=== PATIENT | female | born 1980 | race Caucasian/White ===

== ENCOUNTER 2016-10-06 20:51 | Emergency (ER) | payer OTHER ==
[2016-10-06 21:14] VITALS: RESP 16; TEMP 98.1
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
[2016-10-06 22:39] VITALS: BP 126/77; PULSE 73; O2SAT 98
== END 2016-10-06 22:39 | disposition home or self-care (01) ==
DX: Z04.8 Encounter for examination and observation for other specified reasons (principal); Z87.891 Personal history of nicotine dependence